=== PATIENT | male | born 2000 | race Caucasian/White ===

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

== ENCOUNTER → 2022-12-08 | Outpatient (CLI) | payer BC, OTHER ==
[~2022-12-08] MED LIST: IBUP1TAB5 PO; PERC5TAB12 PO
== END ==
LOC: M WUC 13:57
PROVIDERS: ATTEND Physician Assistant
DX: M25.462 Effusion, left knee (principal)